=== PATIENT | male | born 1930 | race Caucasian/White ===

== ENCOUNTER 2016-09-14 19:45 | Emergency (ER) | payer MEDICARE, OTHER ==
--- NOTE | ~2016-09-14 | EHP ---
ER History and Physical [place] [id number] [facility] [address] [place] [id number] NAME: IGNACIA NAVARRETE : 30 STATUS : DEP ER PAT#: [id number] AGE: 86 ADM/REG DATE : 09/14/16 MR#: [id number] REPORT SERV DATE: 09/15/16 DICTATED BY: RADHA CAIN DATE: 09/14/16 REPORT STATUS : Draft TRANSCRIBED BY: KIT DATE: 09/14/16 ADDENDUM: I had a long discussion with both Mr. Navarrete's son and daughter in regard to his care. He is currently at the [facility]. Based on my assessment of him here and his ongoing history, the family is very well aware that he needs a higher level of care. He has been on the waiting list at the [facility] for a year now and the family is very adamant about waiting for that. He continues to have increased confusion, weakness, sleepiness. I have suggested admission to the hospital so that we can place him; however, there is great concern that if he gets placed in a fdc that is not the [facility] then their mother will lose her house because full benefits of the [facility], so understandably they refused admission to the hospital at this time, but I have voiced that I continued to have concern about his well-being in the assisted living. They are asking to take him home this evening and they will follow up with their doctor and try to see if they can push the admission to the [facility] quicker. ENE/KIT Radha Cain M.D. / [id number]
[2016-09-14 16:35] LABS: BASOPHILS 0.2 %; BASOPHILS ABSOLUTE 0.01 10/3/uL (0.0-0.16); EOSINOPHILS 2.8 %; EOSINOPHILS ABSOLUTE 0.18 10/3/uL (0.0-0.53); HEMOGLOBIN 14.4 g/dL (13.6-17.8); IMMATURE GRANULOCYTES 0.5 %; IMMATURE GRANULOCYTES ABSOLUTE 0.03 10/3/uL (0.0-0.11); LYMPHOCYTES 31.8 %; LYMPHOCYTES ABSOLUTE 2.02 10/3/uL (0.67-4.30); MEAN CORPUS HGB CONC 34.8 g/dL (32.0-36.0); MEAN CORPUSCULAR HEMOGLOB 31.6 pg (26.0-34.0); MONOCYTES 8.2 %; MONOCYTES ABSOLUTE 0.52 10/3/uL (0.21-1.20); NEUTROPHILS 56.5 %; NEUTROPHILS ABSOLUTE 3.59 10/3/uL (2.02-8.40); PLATELET COUNT 159 10/3/uL (150-400); RBC DISTRIBUTION WIDTH 14.1 % (12.0-16.0); RED CELL COUNT 4.55 10/6/uL (4.7-6.1); WHITE BLOOD CELLS 6.4 10/3/uL (4.5-10.5)
[2016-09-14 16:37] LABS: HEMATOCRIT 41.4 % (40.0-51.0); MANUAL DIFF NO %
[2016-09-14 16:57] LABS: BUN (BLOOD UREA NITROGEN) 19 MG/DL (6-23); CALCIUM, SERUM 8.8 MG/DL (8.5-10.4); CHEST PAIN PROFILE TAT 0 Hrs 26 Mins; CHLORIDE, SERUM 106 MMOL/L (96-112); CO2 (CARBON DIOXIDE) 25 MMOL/L (24-34); CREATININE 1.03 MG/DL (0.70-1.30); GFR AFRICAN AMERICAN 76 ML/MIN (>=60); GFR NON AFRICAN AMERICAN 65 ML/MIN (>=60); GLUCOSE, SERUM 102 MG/DL (60-99); POTASSIUM, SERUM 3.9 MMOL/L (3.5-5.3); SODIUM, SERUM 137 MMOL/L (135-148); TROPONIN I <0.02 NG/ML (<0.05)
[2016-09-14 17:52] LABS: INTERNATIONAL NORMAL RATI 1.2 UNITS (-); PROTIME (NOT ORD) 14.8 SEC (12.0-14.5)
[2016-09-14 18:39] LABS: ALBUMIN 3.2 G/DL (3.5-5.0); DIRECT BILIRUBIN 0.1 MG/DL (0.0-0.4); INDIRECT BILIRUBIN(NOT ORDER) 0.5 MG/DL (0.1-0.9); TOTAL BILIRUBIN 0.6 MG/DL (0-1.2); TOTAL PROTEIN 6.4 G/DL (6.0-8.5)
[2016-09-14 18:40] LABS: LACTATE 1.3 MMOL/L (0.3-2.4)
[~2016-09-14 19:45] MED LIST: ARICEPT5 PO; FOLIC PO; LOP25 PO; LOP50 PO; VITAMIN B-121000 MC1 SL; [UNRECOGNIZED DRUG - OTHER] OR; [UNRECOGNIZED DRUG - OTHER] PO
[2016-09-14 20:28] LABS: WBC (NOT ORDERED) (RFLEX) 0 (0-5)
[2016-09-14 20:35] LABS: ASCORBIC ACID (UR NOT ORDER) NEG (NEG); BILIRUBIN, URINE NEGATIVE (NEG); ER URINALYSIS TAT 0 Hrs 07 Mins; KETONE, URINE NEGATIVE (NEG); LEUKOCYTE ESTERASE(NOT OR NEG (NEG); NITRITE (URINE) NEG (NEG)
[2016-09-14] MEDS ORDERED: BUSPAR15 M1 PO (20:56)
[2016-09-14] MEDS ORDERED: D.O.S.100 MG PO (20:56)
[2016-09-14] MEDS ORDERED: FLOMAX4 PO (20:57)
[2016-09-14] MEDS ORDERED: GEODON80 PO (20:57)
[2016-09-14] MEDS ORDERED: TRAZ50 PO ×2 (20:57→20:59)
[2016-09-14] MEDS ORDERED: L20 PO (20:58)
[2016-09-14] MEDS ORDERED: SPIRO25 PO (20:59)
[2016-09-14] MEDS ORDERED: CLARIT10 PO (21:00)
[2016-09-14] MEDS ORDERED: GEODON40 MG PO (21:00)
[2016-09-14] MEDS ORDERED: CALMOSEPTINE O2.5 OZ TOP (21:01)
== END 2016-09-14 22:00 | disposition home or self-care (01) ==
LOC: ER 19:45
PROVIDERS: Emergency Medicine; Specialist
DX: R53.1 Weakness (principal); F51.9 Sleep disorder not due to a substance or known physiological condition, unspecified; F03.90 Unspecified dementia, unspecified severity, without behavioral disturbance, psychotic disturbance, mood disturbance, and anxiety; R41.0 Disorientation, unspecified; Z87.891 Personal history of nicotine dependence; Z79.899 Other long term (current) drug therapy
CPT/HCPCS: 71020; 80048; 80076; 81001; 83605; 83735; 83880; 84484; 85025; 85610; 85730; 87040; 93005; 99285; A9270-GY